=== PATIENT | female | born 1970 | race Caucasian/White ===

== ENCOUNTER 2018-11-26 05:29 | Day surgery (SDC) | payer OTHER ==
[2018-11-23 09:42] VITALS: BMI 44.5
[~2018-11-26] VITALS: Ht 172.7 cm; Wt 133.9 kg
[2018-11-26] VITALS (15 sets, daily range): BP systolic 128–160; BP diastolic 53–67; PULSE 74–98; RESP 12–23; Ht 172.7 cm; Wt 133.9 kg
[2018-11-26] MEDS ORDERED: NORE-92 PO (06:21)
--- NOTE | 2018-11-26 06:52 | PREAC ---
Date/Time of Note Date/Time of Note DATE: 11/26/18 TIME: 06:50 Anesthesia Eval and Record Evaluation Time Pre-Procedure Interview DATE: 11/26/18 TIME: 06:50 Age 48 Sex female NPO: 8 hrs Preoperative diagnosis loose ankle left ankle and subtalar Planned procedure operative arthroscopy, extensive debridement, removal loose bodies, left ankle and subtalar Past Medical History Past Medical History: Includes GI: Morbid obesity, Other (h/o diverticulitis) Surgery & Anesthesia Issues No known issue Meds Anticoagulation: No Beta Loreta within 24 hr: No Reason Beta Loreta not given: Pt. not on B-Loreta Reported Medications Norethindrone AC-Eth Estradiol (Loestrin 21 1-20 Tablet) 1 Each Tablet, 1 EACH PO DAILY, TAB 11/26/18 Meds reviewed: Yes Allergies Coded Allergies: No Known Allergy (Unverified , 11/23/18) Allergies Reviewed: Yes Labs/Studies Labs Reviewed: Reviewed by anesthesiologist test: Negative Pre-procedure Exam Last vitals Vital Signs Date Temp Pulse Resp B/P (MAP) Pulse Ox O2 O2 Flow FiO2 Time Delivery Rate 11/26/18 98.3 89 16 140/58 100 Room Air 05:30 (85) Airway: Adequate mouth opening, Adequate thyromental dist Mallampati: Mallampati II Teeth: Normal Lung: Normal Heart: Normal ASA Physical Status ASA physical status: 3 Emergency: None Planned Anesthetic General/MAC: ETT Nerve block: Sciatic (left) Planned Pain Management Single shot nerve block, Parenteral pain med Pre-operative Attestations Prior to commencing anesthesia and surgery, the patient was re-evaluated, there was verification of: *The patient's identity *The results of appropriate recent lab work and preoperative vital signs *The above evaluation not changing prior to induction *Anesthetic plan, risk benefits, alternative and complications discussed with patient/family; questions answered; patient/family understands, accepts and wishes to proceed. KASIA ACOSTA MD Nov 26, 2018 06:52
[2018-11-26] MEDS ORDERED: PROCHLORPERAZINE 10 MG INJ IV PRN (07:00)
[2018-11-26] MEDS ORDERED: FENTAnyl 50 MCG/ML VIAL IV PRN ×2 (07:00)
[2018-11-26] MEDS ORDERED: HYDROmorphONE 1 MG/5 ML IV SYRINGE IV PRN ×2 (07:00)
[2018-11-26] MEDS ORDERED: MIDAZOLAM 1 MG/ML 2 ML INJ ONE ×2 (07:00→07:49)
[2018-11-26] MEDS ORDERED: SUCCINYLCHOLINE CHLORIDE 100 MG/5 ML SYG IV ONE (07:00)
[2018-11-26] MEDS ORDERED: MEPERIDINE 25 MG INJ IV PRN (07:00)
[2018-11-26] MEDS ORDERED: FENTAnyl 50 MCG/ML VIAL ONE (07:00)
[2018-11-26] MEDS ORDERED: ONDANSETRON 4 MG INJ IV PRN ×2 (07:00→11:00)
[2018-11-26] MEDS ORDERED: LIDOCAINE 2% (SDV) 5 ML INJ ONE (07:00)
[2018-11-26] MEDS ORDERED: DIPHENHYDRAMINE 50 MG INJ IV PRN (07:00)
[2018-11-26] MEDS ORDERED: OXYCODONE/ACETAMINOPHEN (5/325) TAB PO PRN ×4 (07:00→11:00)
[2018-11-26] MEDS ORDERED: PROPOFOL 20 ML ONE ×2 (07:00→08:07)
[2018-11-26] MEDS ORDERED: ROPIVACAINE 0.5 % 30 ML VIAL ONE ×2 (07:05→09:51)
[2018-11-26] MEDS ORDERED: POLYMYXIN/BACITRACIN 1L IRRIG ONE (07:25)
[2018-11-26] MEDS ORDERED: POVIDONE IODINE 10% 28.4 GM OINT ONE (07:25)
[2018-11-26] MEDS ORDERED: CEFAZOLIN 1 GM INJ ONE ×2 (07:54→08:26)
[2018-11-26] MEDS ORDERED: ROCURONIUM 50 MG INJ ONE ×2 (08:24→08:26)
[2018-11-26] MEDS ORDERED: ONDANSETRON 4 MG INJ ONE (08:27)
[2018-11-26] MEDS ORDERED: FAMOTIDINE 20 MG INJ ONE (08:27)
[2018-11-26] MEDS ORDERED: DEXAMETHASONE 4 MG/ML 5 ML INJ ONE (08:27)
[2018-11-26] MEDS ORDERED: HYDROmorphONE 2 MG/ML SYG ONE (08:28)
[2018-11-26] MEDS ORDERED: LABETALOL HCL 20MG INJ ONE (09:40)
[2018-11-26] MEDS ORDERED: SUGAMMADEX SODIUM 200 MG/2 ML VIAL IV ONE ×2 (10:14→10:22)
[2018-11-26] MEDS ORDERED: SOD CHLORIDE 0.9% 1,000 ML IV SCH (10:47)
--- NOTE | 2018-11-26 10:53 | OPPN ---
Date/Time of Note Date/Time of Note DATE: 11/26/18 TIME: 10:51 Operative Report Preoperative Diagnosis Left ankle loose body in left ankle joint and subtalar joint Postoperative Diagnosis left ankle soft tissue impingement and left ankle subtalar arthritis Operation/Procedure Performed operative arthroscopy of the left ankle and subtalar joint, extensive debridement Surgeon see signature line economic research assistant Vania Ramirez PA-C Anesthesia: general Estimated blood loss: minimal Transfusion Required none Specimen none Grafts/Implants none Complications none MATHEUS RAMIREZ MD Nov 26, 2018 10:53
[2018-11-26] MEDS ORDERED: morphine 2 MG INJ IV PRN (11:00)
[2018-11-26] MEDS: HYDROmorphONE 1 MG/5 ML IV SYRINGE IV PRN ×2 (11:07→11:15)
[2018-11-26] MEDS: FENTAnyl 50 MCG/ML VIAL IV PRN ×2 (11:08→11:15)
[2018-11-26] MEDS ORDERED: CEFAZOLIN 1 GM/50 ML (PMX) 50 ML IVPB SCH (11:30)
--- NOTE | 2018-11-26 11:58 | PAC ---
Date/Time of Note Date/Time of Note DATE: 11/26/18 TIME: 11:57 Post-Anesthesia Notes Post-Anesthesia Note Last documented vital signs Vital Signs Date Temp Pulse Resp B/P (MAP) Pulse Ox O2 O2 Flow FiO2 Time Delivery Rate 11/26/18 98.3 78 17 139/58 95 Room Air 11:39 (85) 11/26/18 2.0 11:01 Activity: WNL Respiratory function: WNL Cardiovascular function: WNL Mental status: Baseline Pain reasonably controlled: Yes Hydration appropriate: Yes Nausea/Vomiting absent: Yes Comments KASIA ACOSTA MD Nov 26, 2018 11:58
--- NOTE | 2018-11-26 13:13 | OPR ---
DATE OF OPERATION: 11/26/2018 PREOPERATIVE DIAGNOSES: 1. Status post posterior medial fracture of the talus extending into the subtalar joint. 2. 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 3. Rule out degenerative changes in the ankle. POSTOPERATIVE DIAGNOSES: 1. Status post posterior medial fracture of the talus and the subtalar. 2. 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 3. Some mild grade I, slight grade II chondromalacia of the ankle with synovitis. OPERATION PERFORMED: 1. Arthroscopy, left ankle, with soft tissue distraction. 2. Extensive debridement of the ankle. 3. Arthroscopy subtalar joint soft tissue distraction. 4. Extensive debridement, subtalar joint. 5. Use of fluoroscopy to verify position of the cannulas, particularly in the subtalar joint because it was so tight, it was very difficult to get into the subtalar joint. 6. Short-leg splint. Extremely difficult and complex procedure because the patient had severe arthrofibrosis with scarring and degenerative changes in the subtalar joint, making the subtalar joint very difficult to get into. It took us almost an hour with the fluoroscope to accomplish what we could in the joint. In addition, the patient has a BMI of 48, which made it much more difficult as well. Because of this, an additional 60 minutes of time was spent (22). SURGEON: Jorge Delgadillo MD QUALITY ASSURANCE AUDITOR: ANGELA Palma ANESTHESIA: General with popliteal block. TOURNIQUET TIME: 96 minutes. DESCRIPTION OF PROCEDURE: The patient taken to the operating room and placed in supine position. Satisfactory popliteal block was given. Satisfactory general anesthesia was administered, 2 grams Ancef intravenously. The patient's thigh was secured in the thigh hernandez. All areas were carefully padded. The left leg was prepped and draped in the usual manner. Exam under anesthesia revealed severe loss of the inversion, eversion, mild loss of dorsi and plantarflexion. Superficial peroneal nerve was not well seen. The left lower extremity was prepped and draped in the usual manner. Tourniquet inflated to 300 mmHg. Soft tissue distraction applied. Standard anterior lateral and central posterolateral portals were used, of the subtalar joint. Subtalar joint was severely arthrofibrotic and there was grade II, some areas of grade III, slight grade IV chondromalacia of the posterior subtalar joint. We put a shaver in and tried to debride the posterior subtalar joint. It was difficult because of displacement by the previous fracture deformity. Subtalar joint had no pain. We could not get anything bigger than 1.9 mm arthroscope through the joint. With severe difficulty, we were able to debride the joint anteriorly and posteriorly but felt because of degenerative joint disease and arthrofibrosis and loss of motion in the subtalar joint, that effusion may ultimately be necessary for her. After complete debridement, subtalar joint, attention was turned to the ankle. Standard anteromedial, anterolateral, and posterolateral portals were used, using extreme caution to avoid injuring neurovascular structures. There was synovitis and fibrosis articulation scarring along the distal tibia. Synovitis scar in the lateral gutter. Anterior gutter had scarring. Essentially we had some mild grade I to II chondromalacia but very little chondromalacia posteriorly. There was a lot of scarring posteriorly from the previous fracture. The joint was so tight that at 1.9 arthroscope could not be maneuvered all the way back to the back of the joint without scratching it. The shaver was inserted. The arthroscope loose body was just removed. All the scar was debrided from the medial gutter and lateral gutter, and anterior gutter. Chondroplasty was performed along the tibiotalar joint and posterior ankle. The calcification was posterior to the ankle. Because it was so extremely tight in that area. We could not be remove that without injuring other structures. After complete debridement of the ankle, the ankle moved freely. The wounds were closed with 4-0 black nylon. Tourniquet was released. Saphenous nerve block and 0.5% Rupivacaine. A posterior splint was applied in neutral position. At the end of procedure, sponge and needle count was correct. Patient tolerated procedure well. It should be noted during the procedure we used the fluoroscope to verify our position in the subtalar joint, but also in the ankle as well. INDUSTRIAL RELATIONS COUNSELOR ORTHOPEDIC SURGEON: During the procedure, an assistant merchandiser orthopedic surgeon and PA was used at my request. The PA helped with distraction of the joint and manipulating the arthroscope and trying to obtain further motion without a skilled assistance cannot be done. This will be compensated appropriately. Dictated By: JORGE BOLAÑOS/JARRETT Conf#: [id number] DID#: [id number] MTDD
--- NOTE | 2018-11-26 14:34 | NUR ---
1307-PT. DOES NOT USE CRUTCHES TO HARD & USES A SCOOTER AT HOME .
== END 2018-11-26 13:07 | disposition home or self-care (01) ==
LOC: SDS 05:29
PROVIDERS: ATTEND Orthopaedic Surgery
DX: S92.192D Other fracture of left talus, subsequent encounter for fracture with routine healing (principal); X58.XXXD Exposure to other specified factors, subsequent encounter; M65.872 Other synovitis and tenosynovitis, left ankle and foot; M94.272 Chondromalacia, left ankle and joints of left foot; M19.072 Primary osteoarthritis, left ankle and foot; E66.01 Morbid (severe) obesity due to excess calories; Z68.41 Body mass index [BMI] 40.0-44.9, adult
CPT/HCPCS: 29898; 73610; J0690; J1100; J1170; J2250; J2405; J2795; J3010

== ENCOUNTER 2019-04-01 07:32 | Observation (INO) | payer OTHER ==
[2019-03-21 17:46] VITALS: BMI 46.9
--- NOTE | 2019-03-22 08:36 | PREOPHP ---
DATE OF ADMISSION: 04/01/2019 The patient is to have surgery with Dr. Jorge Ramirez on 04/01/2019. REASON FOR CONSULTATION: Consultation requested by Dr. Jorge Ramirez for medical evaluation and clearance of a 48-year-old woman about to undergo surgery. Thank you, Dr. Ramirez, for allowing us to participate in the care of this patient. HISTORY OF PRESENT ILLNESS: Tatyana Ramos a 48-year-old woman, issues with her left ankle that is being probably her third procedure for the above is currently being admitted for correction of the above problem. In terms of her past medical and surgical history, she has had no significant medical hospitalizations, had 2 pregnancies with vaginal deliveries. From a surgical standpoint, had a laparoscopic cholecystectomy, had left ankle open reduction internal fixation as well as an arthroscopic procedure done in October in an attempt to alleviate some of the pain, which was not fully successful and currently will be admitted for definitive surgery. Other than her left ankle she has not had any other injuries. She takes control pills. She is not allergic to any medications. Her general health has been good. SOCIAL HISTORY: The patient is , has 2 daughters and 3 grandchildren. She does not smoke or drink alcohol, does drink coffee, is employed and has no difficulty sleeping at night. FAMILY HISTORY: Both parents are alive. Father is 81, has hypertension, smoker. Mother is 76, has hypertension and has ulcerative colitis. 6 brothers, 1 sister in good health. There is family history of diabetes, cancer, hypertension, no heart stroke or thyroid issues. REVIEW OF SYSTEMS: HEENT: Unremarkable. CARDIORESPIRATORY: She denies any chest pain or shortness of breath. GASTROINTESTINAL: No melena or hematemesis. GENITOURINARY: No urgency, frequency. GYNECOLOGIC: She has no menses currently secondary to the control methodology. MUSCULOSKELETAL: Positive for left ankle pain. NEUROPSYCHIATRIC: Unremarkable. GENERAL HEALTH: As above. PHYSICAL EXAMINATION: VITAL SIGNS: The patient's blood pressure was 130/80, pulse was 82 and regular, respirations were 18, temperature 98.2, height 5 feet 7-1/2 inches, weight 296 pounds. GENERAL: The patient was noted to be a well-developed, well-nourished female, alert and cooperative, in no apparent acute distress, oriented to time, place, and person. HEAD, EARS, EYES, NOSE AND THROAT: Head was atraumatic. Eyes: Pupils were equal, reactive to light and accommodation. Fundi were benign. Tympanic membranes were unremarkable. Nose was negative. Mouth was unremarkable. Fair oral hygiene was present. NECK: Supple without any rigidity. Trachea was midline. Thyroid was within normal limits. Neck veins were flat. Carotid pulses were equal. No bruits were heard. BACK: Unremarkable. CHEST: Symmetrical. BREASTS AND AXILLARY: Did not reveal any obvious masses. LUNGS: Clear. HEART: Examination of the heart PMI was at the fifth intercostal space at the midclavicular line. A regular sinus rhythm was noted. No significant murmurs, rubs, or gallops being elicited. ABDOMEN: Soft, bowel sounds were noted. No obvious organomegaly, masses, or tenderness being noted. GENITALIA: PELVIRECTAL: Up to date per shift boss. EXTREMITIES: Did not reveal any clubbing, edema or cyanosis. Peripheral pulses were physiologic. SKIN: Moist and warm without any eruptions. No gross lymphadenopathy was noted. NEUROLOGIC: Grossly intact. IMPRESSION: 1. Loose bodies, left ankle and degenerative joint disease post-trauma. 2. Metabolic syndrome. 3. Stable health. LABORATORY DATA: Review of laboratory and other data revealed the following: The patient's chemistry panel including electrolytes, glucose, BUN, creatinine, calcium, uric acid, proteins, liver function tests, test were all normal and negative. CBC, UA, PT and PTT were normal as well. The patient's EKG was normal and her chest x-ray did not reveal any acute infiltrates, nor were there any acute cardiopulmonary changes being noted. DISCUSSION: Dr. Ramirez, I see no contraindication in this patient undergoing current proposed surgery under desired form of anesthesia. I feel she is a suitable candidate at this particular point in time and we will be more than happy to follow her along with you during her stay at [facility]. Thank you again, Dr. Ramirez, for allowing us to participate in the care of this patient. Dictated By: MANJU CHEATHAM MD SS/NTS Conf#: [id number] DID#: [id number] CC: JORGE RAMIREZ MD;*EndCC* MTDD
[2019-04-01] VITALS (21 sets, daily range): BP systolic 104–130; BP diastolic 41–68; PULSE 74–110; RESP 16–19; Ht 170.2 cm; Wt 136.2 kg
[~2019-04-01] VITALS: Ht 170.2 cm; Wt 136.2 kg
[~2019-04-01 07:32] MED LIST: NORE-92 PO
[2019-04-01] MEDS: LACTATED RINGER'S 1,000 ML IV SCH (08:48)
[2019-04-01] MEDS ORDERED: PROPOFOL 20 ML ONE (09:02)
[2019-04-01] MEDS ORDERED: SUCCINYLCHOLINE CHLORIDE 100 MG/5 ML SYG IV ONE (09:02)
[2019-04-01] MEDS ORDERED: LIDOCAINE 2% (SDV) 5 ML INJ ONE (09:02)
[2019-04-01] MEDS ORDERED: NEOSTIGMINE 3 MG/3 ML SYRINGE ONE ×2 (09:02→10:08)
[2019-04-01] MEDS ORDERED: ROCURONIUM 50 MG INJ ONE ×4 (09:02→13:02)
[2019-04-01] MEDS ORDERED: GLYCOPYRROLATE 0.4 MG INJ ONE ×3 (09:02→10:08)
[2019-04-01] MEDS ORDERED: CEFAZOLIN 1 GM INJ ONE ×3 (10:04→12:22)
[2019-04-01] MEDS ORDERED: ROPIVACAINE 0.5 % 30 ML VIAL ONE ×2 (10:05→11:34)
[2019-04-01] MEDS ORDERED: hydrALAzine 20 MG INJ ONE (10:13)
[2019-04-01] MEDS ORDERED: ONDANSETRON 4 MG INJ ONE (10:36)
[2019-04-01] MEDS ORDERED: METOCLOPRAMIDE 10 MG INJ ONE (10:37)
[2019-04-01] MEDS ORDERED: LABETALOL HCL 20MG INJ ONE (10:38)
[2019-04-01] MEDS ORDERED: MIDAZOLAM 1 MG/ML 2 ML INJ ONE (10:45)
--- NOTE | 2019-04-01 11:17 | PREAC ---
Date/Time of Note Date/Time of Note DATE: 04/01/19 TIME: 11:16 Anesthesia Eval and Record Evaluation Time Pre-Procedure Interview DATE: 04/01/19 TIME: 11:16 Age 48 Sex female NPO: 8 hrs Preoperative diagnosis Severe osteoarthritis, left ankle Planned procedure Subtalar arthrodesis with iliac crest bone graft Past Medical History Past Medical History: Includes GI: Morbid obesity Surgery & Anesthesia Issues No known issue Meds Anticoagulation: No Beta Loreta within 24 hr: No Reason Beta Loreta not given: Pt. not on B-Loreta Reported Medications Norethindrone AC-Eth Estradiol (Loestrin 21 1-20 Tablet) 1 Each Tablet, 1 EACH PO DAILY, TAB 11/26/18 Current Medications Lactated Ringer's 1,000 ml @ 25 mls/hr Q24H IV Last administered on 04/01/19at 08:48; Admin Dose 25 MLS/HR; Start 04/01/19 at 08:29 Meds reviewed: Yes Allergies Coded Allergies: No Known Allergy (Unverified , 04/01/19) Allergies Reviewed: Yes Labs/Studies Labs Reviewed: Reviewed by anesthesiologist test: Negative Pre-procedure Exam Last vitals Vital Signs Date Temp Pulse Resp B/P (MAP) Pulse Ox O2 O2 Flow FiO2 Time Delivery Rate 04/01/19 98.3 77 16 130/68 99 Room Air 08:26 (88) Airway: Adequate mouth opening Mallampati: Mallampati II Teeth: Normal Lung: Normal Heart: Normal ASA Physical Status ASA physical status: 3 Emergency: None Planned Anesthetic General/MAC: ETT Planned Pain Management Single shot nerve block, Parenteral pain med Pre-operative Attestations Prior to commencing anesthesia and surgery, the patient was re-evaluated, there was verification of: *The patient's identity *The results of appropriate recent lab work and preoperative vital signs *The above evaluation not changing prior to induction *Anesthetic plan, risk benefits, alternative and complications discussed with patient/family; questions answered; patient/family understands, accepts and wishes to proceed. ZAC WEINSTEIN MD Apr 01, 2019 11:17
[2019-04-01] MEDS ORDERED: GELATIN SIZE 100 SPONGE ONE (11:33)
[2019-04-01] MEDS ORDERED: POLYMYXIN/BACITRACIN 1L IRRIG ONE (11:34)
[2019-04-01] MEDS ORDERED: THROMBIN 5000 UNIT VIAL ONE ×2 (11:34→12:47)
[2019-04-01] MEDS ORDERED: POVIDONE IODINE 10% 28.4 GM OINT ONE (11:34)
--- NOTE | 2019-04-01 11:47 | HPN ---
Date/Time of Note Date/Time of Note DATE: 04/01/19 TIME: 11:46 Interval H&P Admission Note Pt. seen H&P reviewed: No system changes MATHEUS RAMIREZ MD Apr 01, 2019 11:47
[2019-04-01] MEDS ORDERED: SEVOFLURANE 15 MIN ONE (12:00)
[2019-04-01] MEDS ORDERED: FENTAnyl 50 MCG/ML VIAL ONE ×2 (12:40→15:42)
[2019-04-01] MEDS ORDERED: POLYMYXIN/BACITRACIN 1L IRRIG IRR ONE (14:00)
[2019-04-01] MEDS ORDERED: LABETALOL HCL 20MG INJ IV PRN (15:00)
[2019-04-01] MEDS ORDERED: FENTAnyl 50 MCG/ML VIAL IV PRN ×2 (15:00)
[2019-04-01] MEDS ORDERED: HYDROmorphONE 1 MG/5 ML IV SYRINGE IV PRN ×3 (15:00)
[2019-04-01] MEDS ORDERED: EPHEDrine 25 MG/5 ML SYG IV PRN (15:00)
[2019-04-01] MEDS ORDERED: DIPHENHYDRAMINE 50 MG INJ IV PRN (15:00)
[2019-04-01] MEDS ORDERED: ONDANSETRON 4 MG INJ IV PRN ×2 (15:00→17:00)
[2019-04-01] MEDS ORDERED: MIDAZOLAM 1 MG/ML 2 ML INJ IV PRN (15:00)
[2019-04-01] MEDS ORDERED: OXYCODONE/ACETAMINOPHEN (5/325) TAB PO PRN ×2 (15:00)
[2019-04-01] MEDS ORDERED: MEPERIDINE 25 MG INJ IV PRN (15:00)
[2019-04-01] MEDS ORDERED: METOCLOPRAMIDE 10 MG INJ IV PRN (15:00)
[2019-04-01] MEDS ORDERED: hydrALAzine 20 MG INJ IV PRN (15:00)
--- NOTE | 2019-04-01 16:42 | OPPN ---
Date/Time of Note Date/Time of Note DATE: 04/01/19 TIME: 16:40 Operative Report Preoperative Diagnosis Left ankle subtalar arthritis Postoperative Diagnosis Left ankle subtalar arthritis Operation/Procedure Performed 1. left iliac bone crest harvesting, 2. open left ankle subtalar arthrodesis Surgeon see signature line media center assistant Pavan Swain MD Anesthesia: general Estimated blood loss: minimal Transfusion Required none Specimen None Grafts/Implants none Complications none MATHEUS RAMIREZ MD Apr 01, 2019 16:42
[2019-04-01] MEDS: FENTAnyl 50 MCG/ML VIAL IV PRN ×2 (16:58→17:42)
[2019-04-01] MEDS ORDERED: BISACODYL 10 MG SUPP PR PRN (17:00)
[2019-04-01] MEDS ORDERED: DIPHENHYDRAMINE 25 MG CAP PO PRN (17:00)
[2019-04-01] MEDS ORDERED: morphine 10 MG INJ IV PRN (17:00)
[2019-04-01] MEDS ORDERED: HYDROmorphONE 0.2 MG/ML PCA IV SCH (17:00)
[2019-04-01] MEDS: CEFAZOLIN 1 GM/50 ML (PMX) 50 ML IVPB SCH (17:04)
--- NOTE | 2019-04-01 18:17 | PAC ---
Date/Time of Note Date/Time of Note DATE: 04/01/19 TIME: 18:16 Post-Anesthesia Notes Post-Anesthesia Note Last documented vital signs Vital Signs Date Temp Pulse Resp B/P (MAP) Pulse Ox O2 O2 Flow FiO2 Time Delivery Rate 04/01/19 92 17 123/42 97 Nasal 2.0 17:48 (69) Cannula 04/01/19 98.7 16:33 Activity: WNL Respiratory function: WNL Cardiovascular function: WNL Mental status: Baseline Pain reasonably controlled: Yes Hydration appropriate: Yes Nausea/Vomiting absent: Yes Comments BT: 98.6 ZAC WEINSTEIN MD Apr 01, 2019 18:17
[2019-04-01] MEDS: SOD CHLORIDE 0.9% 1,000 ML IV SCH (18:18)
--- NOTE | 2019-04-01 18:23 | OPR ---
DATE OF OPERATION: 04/01/2019 PREOPERATIVE DIAGNOSES: 1. Severe degenerative arthritis, left subtalar joint. 2. Morbid obesity. POSTOPERATIVE DIAGNOSES: 1. Severe degenerative arthritis, left subtalar joint. 2. Morbid obesity. OPERATIONS: 1. Arthrodesis, left subtalar joint with two 7.3 mm AO cannulated screws. 2. Iliac crest bone graft plus augment to the fusion site. 3. Use of fluoroscopy to verify position and alignment of guide pins and screws. 4. Short leg cast. Extremely complex and difficult procedure because the patient's BMI which was 47 made extremely diffi cult to do the bone graft. The wound was so deep with the bone graft required abdominal retractors t o try to see what we needed to do and prolonged the case of 30 minutes. In addition, the patient had severe degenerative arthritis of the subtalar joint and because of her size also made it very diffic ult to do the fusion which had again another 60 minutes of time to the case for an additional total o f 90 minutes (22). SURGEON: Matheus Delgadillo MD SPRAGGER: Pavan Swain MD ANESTHESIA: General with popliteal block. TOURNIQUET TIME: 123 minutes. DESCRIPTION OF PROCEDURE: The patient was taken to the operating room, placed in supine position. S atisfactory popliteal block was given. Satisfactory general anesthesia was administered. A 3 grams Ancef were given intravenously. The patient's BMI was 47. We taped a lot of the fat away from the o perative site then prepped and draped the entire iliac crest and left lower leg. The iliac crest was approached first. Incision was made over the iliac crest, being careful to avoid neurovascular structures. Dissection was carried down to subcutaneous tissue, went all the way down to the iliac crest which was a very de ep hole and required abdominal retractors, was so deep. The fascia was split in line with its fibers . Saw and osteotome were used to lift up a trap door. Iliac crest bone graft was obtained as well a s bone marrow aspirate in a syringe. After appropriate amount of bone graft had been obtained, the w ounds were irrigated with antibiotic solution and packed with thrombin-soaked Gelfoam. The wound was covered. Gloves were then changed. Tourniquet was inflated to 300 mmHg. Incision was made from the tip of the fibula towards the 4th met atarsal and dissection was carried down to subcutaneous tissue. Peroneal tendons were preserved thro ughout the case as was the sural nerve. I took an x-ray and verified under fluoroscopy that we were in the subtalar joint which was difficult to find and very tight. Then, a Hintermann distractor was applied with 2 pins. The joint was very tight. We were able to distract it. Using different angled curettes and osteotomes, we were able to remove all of the articular cartilage of the posterior subt alar joint and some from the anterior and middle subtalar joint in the sinus tarsi. Once all the art icular cartilage had been removed from the talus and the calcaneus, a bur was used to remove about 1 mm of bone until there was good bleeding cancellous bone throughout the talus and throughout the calc aneus. Multiple spot welds were made with the bur. Multiple drill holes were made with 0.045 K-wire and then multiple shingles were made with an osteotome. Good bleeding surfaces were obtained. An i ncision was then made medial to the anterior tibial tendon. Dissection was carried down to subcutane ous tissue. The capsule was opened in line with its fibers. Guide pin was placed on the talar neck about the central portion. The vector drill guide was placed on the heel. Guide pin was then advanc ed under fluoroscopic control, but we did not go across the subtalar joint. The subtalar joint was t hen packed with the iliac crest bone graft that was mixed with augment to facilitate healing with adan wth factors. After all the bone graft had been placed in the subtalar joint, the foot was placed in slight valgus and neutral dorsi and plantarflexion and the guide pin was advanced, came out the heel after a small incision was made. The guide pin length was measured. Hole was partially drilled and a 7.3 mm AO cannulated screw was then inserted. Excellent fixation was obtained. A second guide pin was then placed with 7.3 mm guide pin more superior to the first. I measured again and partially dr illed and inserted. Good fixation was obtained. Final fluoroscopic views in the lateral position sh owed excellent position of the screws, both across the subtalar joint with good compression. The AP of the heel showed that both screws were in the joint and in the center between the calcaneus and the talus. The tourniquet was released. Bleeders were coagulated. Wounds were irrigated with antibiot ic solution. The medial wound was closed with a running 2-0 undyed Vicryl. The subcutaneous was hector sed with 3-0 undyed Vicryl and skin with 4-0 black nylon. Further bone graft was packed in the later al wound as well as the bone marrow aspirate. Deep tissues were closed with 2-0 undyed Vicryl and th en 3-0 undyed Vicryl and 4-0 black nylon. Saphenous nerve block was done with 0.5% ropivacaine. The iliac crest wounds were then irrigated with antibiotic solution almost a liter. Thrombin-soaked Gelfoam was removed. The trap door was placed back on the iliac crest. The fascia was closed with r unning 0 PDS. Subcutaneous tissue was closed with 2-0 and then 3-0 undyed Vicryl. Skin was closed w ith 3-0 subcuticular Prolene. Steri-Strips were applied. Compression dressing was applied in the hi p. A compression dressing was then applied on the ankle and foot as well as short-leg cast in neutra l position. At the end of procedure, sponge and needle count was correct. The patient tolerated the procedure well. The cast was split in the recovery room. BOSOM PRESSER ORTHOPEDIC SURGEON: During the procedure, an printer floor covering assistant orthopedic surgeon was used at [facility]. The printer floor covering assistant helped with retraction in this very large patient, helped with obtaining the b one graft and also helped a great deal in drilling the guide pins while I held the foot reduced. Wit deannaut a skilled orthopedic surgeon assisting, this could not have been done and thus should be compens ated appropriately. Dictated By: MATHEUS BOLAÑOS/JARRETT Conf#: [id number] DID#: [id number]
[2019-04-01] MEDS: SENNA/DOCUSATE NA (8.6MG/50MG) TAB PO SCH (21:07)
[2019-04-02] MEDS: CEFAZOLIN 1 GM/50 ML (PMX) 50 ML IVPB SCH ×3 (01:27→17:00)
[2019-04-02] MEDS: SOD CHLORIDE 0.9% 1,000 ML IV SCH ×2 (02:40→12:34)
[2019-04-02 04:10] VITALS: BP 133/58; PULSE 90; RESP 18
[2019-04-02] MEDS ORDERED: HYDROmorphONE 0.2 MG/ML PCA IV SCH (07:24)
[2019-04-02 08:03] VITALS: BP 119/49; PULSE 89; RESP 18
[2019-04-02] MEDS: LACTATED RINGER'S 1,000 ML IV SCH (08:04)
[2019-04-02] MEDS: SENNA/DOCUSATE NA (8.6MG/50MG) TAB PO SCH (09:46)
[2019-04-02] MEDS: OXYCODONE/ACETAMINOPHEN (5/325) TAB PO PRN ×2 (10:49→15:20)
[2019-04-02] MEDS ORDERED: RIVAROXABAN 10 MG TABLET PO SCH (17:55)
[2019-04-03] MEDS ORDERED: MAGNESIUM HYDROXIDE 30ML CUP PO SCH (21:00)
--- NOTE | 2019-04-03 23:01 | DS ---
DATE OF ADMISSION: 04/01/2019 DATE OF DISCHARGE: 04/02/2019 DISCHARGE DIAGNOSIS: Severe degenerative arthritis of the left subtalar joint. SURGERY: 1. On 04/01/2019, arthrodesis, left subtalar joint. 2. bone graft to the fusion site. HISTORY OF PRESENT ILLNESS: The patient is a 48-year-old female who previously had trauma to the are a of her ankle and subtalar joint, admitted now for surgery. PHYSICAL EXAMINATION: Severe pain in the subtalar joint with loss of motion of the subtalar joint. Laboratory was normal. Chest x-ray was clear. EKG was stable. HOSPITAL COURSE: The patient taken to the operating room and underwent by my procedure. Postoperati vely, she was on a PERPETUAL INVENTORY CLERK pump. She is able to be up ambulating and be able to be discharged the follow ing day on pain pills and antibiotics and to be followed in the office in 1 week. When she was disch arged, the patient was stable. Dictated By: MATHEUS BOLAÑOS/JARRETT Conf#: [id number] DID#: [id number]
== END 2019-04-02 19:30 | disposition home or self-care (01) ==
LOC: SDS 07:32 → INTOOBSV 17:03 → REC 17:03 → MS1 17:59
PROVIDERS: ADMIT Orthopaedic Surgery; ATTEND Orthopaedic Surgery
DX: M19.072 Primary osteoarthritis, left ankle and foot (principal); E66.01 Morbid (severe) obesity due to excess calories; Z68.42 Body mass index [BMI] 45.0-49.9, adult
CPT/HCPCS: 20900; 28725; 73610; 84703; 97116; 97162; 97530; C1713; G0378; J0360; J0690; J1170; J2175; J2250; J2405; J2710; J2765; J2795; J3010; J7030; J7120